=== PATIENT | female | born 1965 | race African-American/Black ===

== ENCOUNTER → 2021-12-25 | Day surgery (SDC) | payer OTHER | END | disposition home or self-care (01) | LOC: FMAMMOTONE 13:00 | PROVIDERS: ATTEND Surgery | PROC: 0HBU3ZX Excision of Left Breast, Percutaneous Approach, Diagnostic (ICD-10-PCS; principal; 2021-12-25) | DX: N60.22 Fibroadenosis of left breast (principal); N62 Hypertrophy of breast; N64.89 Other specified disorders of breast; R92.1 Mammographic calcification found on diagnostic imaging of breast | CPT/HCPCS: 19081; 76098-TC-FY; 87899; 88305-TC; 88342-TC; A4648 ==

== ENCOUNTER → 2022-05-04 | Day surgery (SDC) | payer OTHER ==
[~2022-05-04] MED LIST: BUPIVACAINE HCL/PF 0.25% (2.5MG/ML) 10 ML VIAL ONE
== END | disposition home or self-care (01) ==
LOC: JASU-SURG 12:14
PROVIDERS: ATTEND Surgery Surgical Oncology
PROC: BH01ZZZ Plain Radiography of Left Breast (ICD-10-PCS; principal; 2022-05-04)
DX: N60.92 Unspecified benign mammary dysplasia of left breast (principal)
CPT/HCPCS: 19281; A4648

== ENCOUNTER 2022-05-06 05:20 | Day surgery (SDC) | payer OTHER ==
[2022-05-04 10:22] VITALS: BMI 26.3
[2022-05-06] MEDS ORDERED: ONDANSETRON 4 MG/2 ML VIAL ONE (11:42)
[2022-05-06] MEDS ORDERED: MIDAZOLAM HCL 2 MG/2 ML SINGLE DOSE VIAL ONE (11:42)
[2022-05-06] MEDS ORDERED: LIDOCAINE 1%/EPI 1:100000 (20 ML MULTI DOSE VIAL) IJ ONE ×3 (12:03)
[2022-05-06] MEDS ORDERED: BUPIVACAINE HCL/PF 0.25% (2.5MG/ML) 10 ML VIAL IJ ONE (12:04)
[2022-05-06] MEDS ORDERED: KETOROLAC TROMETHAMINE 30 MG/1 ML VIAL ONE (12:11)
[2022-05-06] MEDS ORDERED: oxyCODONE HCL 5 MG TABLET PO PRN (12:44)
[2022-05-06] MEDS ORDERED: ONDANSETRON 4 MG/2 ML VIAL IVPUSH PRN (12:44)
[2022-05-06] MEDS ORDERED: LACTATED RINGERS SOLUTION 1,000 ML IV SCH (12:45)
[2022-05-06 13:54] VITALS: RESP 16
[2022-05-06 14:36] VITALS: BP 108/52; PULSE 82; TEMP 98.2
== END 2022-05-06 14:35 | disposition home or self-care (01) ==
LOC: JASU-SURG 05:20
PROVIDERS: ATTEND Surgery Surgical Oncology
PROC: 0HBU0ZX Excision of Left Breast, Open Approach, Diagnostic (ICD-10-PCS; principal; 2022-05-06 12:00)
DX: N60.12 Diffuse cystic mastopathy of left breast (principal); N60.22 Fibroadenosis of left breast
CPT/HCPCS: 76098-TC-FY; 88307-TC; 88342-TC; 94760